=== PATIENT | male | born 1975 | race Caucasian/White ===

== ENCOUNTER 2020-04-21 12:11 | Outpatient (CLI) | payer BC, SELFPAY ==
--- NOTE | ~2020-04-21 | XR_ITS ---
EXAMINATION: XR elbow LT min 3V DATE: 04/21/2020 12:33 INDICATION: Posterior left elbow pain TECHNIQUE: Anteroposterior, two oblique and lateral views of the left elbow were obtained. COMPARISON: None. FINDINGS: Alignment is normal. No fracture or joint effusion. Joint spaces are normal. Soft tissues are unremar kable. IMPRESSION: 1. . Negative left elbow radiographs. Reviewed, dictated and finalized at location B. RAT[facility] SAMPLER
== END 2020-04-21 12:12 | disposition home or self-care (01) ==
PROVIDERS: PCP Family Medicine; Visit Provider Family Medicine
DX: M25.522 Pain in left elbow (principal)
CPT/HCPCS: 73080

== ENCOUNTER → 2021-03-10 08:26 | Outpatient (CLI) | payer BC, SELFPAY ==
[2021-03-15 22:42] LABS: SARS-CoV-2 RNA PCR Negative
== END ==
PROVIDERS: PCP Family Medicine; Visit Provider Physician Assistant
DX: R68.89 Other general symptoms and signs (principal); Z20.822 Contact with and (suspected) exposure to COVID-19
CPT/HCPCS: C9803; U0003; U0005

== ENCOUNTER 2022-11-20 01:33 | Day surgery (SDC) | payer BC, SELFPAY ==
[2022-11-07 13:57] VITALS: BMI 26.4
[2022-11-20 07:20] VITALS: BP 99/73; PULSE 74; RESP 18; TEMP 36.2; O2SAT 99
[2022-11-20 07:31] LABS: Glucose Point of Care 190 mg/dl (65-105)
[2022-11-20] MEDS: LACTATED RINGERS 1,000 ML 150 ML IV CONT (07:33)
--- NOTE | 2022-11-20 08:19 | WPDANESEPPF ---
Anes - Initial Pre Proc Eval Procedure: Operation Date: 11/20/22 08:30 Proposed Procedures p Screening Colonoscopy - Jeancarlos Palacios MD Date/Time: 11/20/22 08:19 Surgeon: Jeancarlos Palacios MD Pre Op Diagnosis: neoplasm screening Patient Data Age: 47 Gender: M Height: 1.83 m Weight: 87.8 kg Last Vital Signs Temp 97.1 F L 11/20/22 07:20 Pulse 74 11/20/22 07:20 Resp 18 11/20/22 07:20 BP 99/73 L 11/20/22 07:20 Pulse Ox 99 11/20/22 07:20 O2 Del Method Room Air 11/20/22 07:20 Allergies Allergy/AdvReac Type Severity Reaction Status Date / Time No Known Allergies Allergy Verified 11/20/22 07:18 Home Medications Medication Instructions Recorded Confirmed Type flash glucose sensor (FreeStyle #1 ea 08/11/22 08/11/22 Rx Arcadio 2 Sensor kit) metformin 1,000 mg tablet 1,000 mg PO BID #180 tabs 08/11/22 11/07/22 Rx rosuvastatin 10 mg tablet 10 mg PO DAILY 08/11/22 11/07/22 History dapagliflozin propanediol 10 mg 10 mg PO DAILY 11/07/22 11/07/22 History tablet (Farxiga) Laboratory Tests 11/20/22 07:28 POC Capillary Glucose 190 H mg/dl (65-105) Patient hx anesthesia problems: none Family hx anesthesia problems: none Results Review: All pre-operative results and documents have been reviewed as part of the pre-operative evaluation. [facility] Past Medical History Medical History Hyperlipidemia, unspecified Type 2 diabetes mellitus with hyperglycemia Vitamin D deficiency Surgical History Surgical History History of back surgery History of excision of pilonidal cyst Social History Social History Smoking packs per day: 0.5 Smoking cigarettes per day: 10.0 Years smoked: 20 Smoking pack-years: 10.00 Smoking status: Current every day smoker Tobacco type: cigarettes Alcohol intake: never Substance use: never Substance use type: does not use Lack of Transportation: No Lack of Food: Never True Current Housing: I Have Housing Concerned About Future Housing: No Difficulty Paying Gas/Electric Bills: No Difficulty Paying for Meds: No Currently Unemployed: No Education: Master's Degree or Higher Difficulty w/ Childcare or Family Care: No Living arrangements: with family Occupation/Education: occupation Gender identity (if verbalized by the patient): Male Sexual Orientation (if Verbalized by the Patient): Straight or Heterosexual Spiritual care concerns: No Anes - Eval Final PreProcedure Day of Procedure 11/20/22 08:19 Patient weight: normal Heart: regular rate and rhythm Lungs: clear to auscultation Airway: Mallampati scale class II Neurological: alert and oriented Last oral intake: >/= 8 hours ASA classification: III Emergent: no Anesthetic plan: proceed Anesthesia type and monitoring: general GIVS and standard monitoring Results Review: All pre-operative results and documents have been reviewed as part of the pre-operative evaluation. Informed Consent: The patient's anesthetic plan and its attendant risks and benefits were discussed with the patient/family/POA. Questions were solicited and answers provided to the satisfaction of the patient/family/POA.
--- NOTE | 2022-11-20 08:19 | PM.HPGS ---
History of Present Illness History of Present Illness Consent: Risks, benefits, and alternatives have been discussed and questions answered. Patient agrees to proceed with procedure. Chief complaint: neoplasm screening Narrative: Almas Salinas Sr. is a 47 year old male here for first screening colonoscopy Review of Systems Constitutional: Constitutional: Denies headache(s) and Denies weakness Eyes: Eyes: Denies blurry vision ENT: Reports Normal hearing present, Denies headache(s) and Denies neck pain Cardiovascular: Cardiovascular: Denies chest pain and Denies dyspnea Respiratory: Respiratory: Denies dyspnea Gastrointestinal: Gastrointestinal: Reports no additional gastrointestinal complaints Genitourinary: Genitourinary: Denies dysuria Musculoskeletal: Musculoskeletal: Denies neck pain Integumentary/Breasts: Skin/Breast: Denies dry skin Neurologic: Reports Normal hearing present, Denies headache(s) and Denies weakness Psychiatric: Psychiatric: Denies anxiety Endocrine: Endocrine: Denies change in body appearance Hematologic/Lymphatic: Hematologic/Lymphatic: Denies easy bleeding Allergic/Immunologic: Allergic/Immunologic: Denies urticaria PMFSH Past Medical History Medical History (Updated 11/20/22 @ 08:20 by Jeancarlos Palacios MD) Colon cancer screening Hyperlipidemia, unspecified Type 2 diabetes mellitus with hyperglycemia Vitamin D deficiency Surgical History Surgical History History of back surgery History of excision of pilonidal cyst Social History Social History Smoking packs per day: 0.5 Smoking cigarettes per day: 10.0 Years smoked: 20 Smoking pack-years: 10.00 Smoking status: Current every day smoker Tobacco type: cigarettes Alcohol intake: never Substance use: never Substance use type: does not use Lack of Transportation: No Lack of Food: Never True Current Housing: I Have Housing Concerned About Future Housing: No Difficulty Paying Gas/Electric Bills: No Difficulty Paying for Meds: No Currently Unemployed: No Education: Master's Degree or Higher Difficulty w/ Childcare or Family Care: No Living arrangements: with family Occupation/Education: occupation Gender identity (if verbalized by the patient): Male Sexual Orientation (if Verbalized by the Patient): Straight or Heterosexual Spiritual care concerns: No Meds Home Medications and Allergies Home Medications Medication Instructions Recorded Confirmed Type flash glucose sensor ([employer] #1 ea 08/11/22 08/11/22 Rx Arcadio 2 Sensor kit) metformin 1,000 mg tablet 1,000 mg PO BID #180 tabs 08/11/22 11/07/22 Rx rosuvastatin 10 mg tablet 10 mg PO DAILY 08/11/22 11/07/22 History dapagliflozin propanediol 10 mg 10 mg PO DAILY 11/07/22 11/07/22 History tablet (Farxiga) Allergies Allergy/AdvReac Type Severity Reaction Status Date / Time No Known Allergies Allergy Verified 11/20/22 07:18 Vital Signs Vital Signs - 24 hr 11/20/22 07:20 Temperature 97.1 F L Pulse Rate 74 Respiratory Rate 18 Blood Pressure 99/73 L Pulse Oximetry 99 Oxygen Delivery Room Air Exam Const: General: comfortable and no acute distress HENMT: Face/Nose/Sinus: Normal nares present Eyes: General: appearance normal, both eyes and all related structures Neck: Neck: no JVD Resp: Auscultation: clear to auscultation bilaterally Cardio: Rate: regular rate Rhythm: regular rhythm GI: Inspection: non-distended GI Palp: Yes Soft to palpation Skin: General skin exam: normal color Neuro: General: gait normal Speech: normal speech Extrem: General: normal to inspection Psych: Mental Status: mental status grossly normal Assessment and Plan Assessment and plan (1) Colon cancer screening: Code(s): Z12.11 - Encounter for screening for malignant zaina
[2022-11-20 08:40] VITALS: BP 103/69; PULSE 73; RESP 18; O2SAT 98
[2022-11-20 08:50] VITALS: BP 105/67; PULSE 63; RESP 20; O2SAT 98
[2022-11-20 09:00] VITALS: BP 101/73; PULSE 65; RESP 18; O2SAT 98
== END 2022-11-20 09:09 | disposition home or self-care (01) ==
PROVIDERS: PCP Family Medicine; Visit Provider Internal Medicine Gastroenterology
PROC: 0DJD8ZZ Inspection of Lower Intestinal Tract, Via Natural or Artificial Opening Endoscopic (ICD-10-PCS; CPT 45378; principal; 2022-11-20 08:30)
DX: Z12.11 Encounter for screening for malignant neoplasm of colon (principal); D12.0 Benign neoplasm of cecum; D12.3 Benign neoplasm of transverse colon; K64.8 Other hemorrhoids; E11.9 Type 2 diabetes mellitus without complications; E78.5 Hyperlipidemia, unspecified; E55.9 Vitamin D deficiency, unspecified; F17.210 Nicotine dependence, cigarettes, uncomplicated; Z79.84 Long term (current) use of oral hypoglycemic drugs
CPT/HCPCS: 45385; 82948; 88305; J2704; J7120